=== PATIENT | male | born 1970 | race Caucasian/White ===

== ENCOUNTER → 2021-03-05 08:47 | Outpatient (CLI) | payer OTHER, SELFPAY ==
--- NOTE | 2021-03-05 | DI.MRI.S_ITS ---
PROCEDURE: MR LUMBAR SPINE WO CON INDICATIONS: Low back pain TECHNIQUE: Noncontrast sagittal T1 spin echo and T2 fast echo, sagittal STIR, axial T1 and T2 fast spin echo through the lumbar spine. In cases with scoliosis, additional coronal T2 fast spin echo may be performed. COMPARISON: None. FINDINGS: Image quality: Excellent. Alignment and Curvature: There is normal bony alignment. Bone Marrow: Marrow is of normal overall signal. No acute vertebral body compression fractures. Spinal Cord: Conus medullaris terminates at the L1 level. Visualized cord demonstrates normal signal and size. Paraspinous Soft Tissues: No paravertebral masses. T12-L1: Normal appearance. L1-L2: Normal appearance. L2-L3: Normal appearance. L3-L4: Normal appearance. L4-L5: Loss of disc signal. Minimal, diffuse disc bulge. Mild bilateral facet hypertrophy. Epidural lipomatosis. Mild narrowing of the central canal secondary to epidural lipomatosis. Mild right neural foraminal narrowing. No neural compression. L5-S1: Loss of disc signal. Mild, diffuse disc bulge. Severe epidural lipomatosis with severe narrowing of the central canal. Right foraminal disc protrusion. Severe right neural foraminal narrowing with compression of the exiting right L5 nerve root. Mild left neural foraminal narrowing. IMPRESSION: 1. L4-L5 and L5-S1 mild degenerative disease. 2. L4-L5 and L5-S1 mild facet arthropathy. 3. Severe L5-S1 central canal narrowing secondary to epidural lipomatosis. 4. Severe right L5-S1 neural foraminal narrowing secondary to disc protrusion with compression of the exiting right L5 nerve root. Dictated by: Marylu North MD, PhD on 03/05/2021 at 13:28 Approved by: Marylu North MD, PhD on 03/05/2021 at 13:32
== END ==
DX: M51.27 Other intervertebral disc displacement, lumbosacral region (principal); M51.36 Other intervertebral disc degeneration, lumbar region; M51.37 Other intervertebral disc degeneration, lumbosacral region; M47.816 Spondylosis without myelopathy or radiculopathy, lumbar region; M47.817 Spondylosis without myelopathy or radiculopathy, lumbosacral region; M48.07 Spinal stenosis, lumbosacral region; E88.2 Lipomatosis, not elsewhere classified
CPT/HCPCS: 72148

== ENCOUNTER 2024-07-05 08:36 | Day surgery (SDC) | payer OTHER, SELFPAY ==
--- NOTE | 2024-07-05 | PATH_ITS ---
[facility] Accession Number: [id number] No. of containers..05 Tissue . 01 Material submitted: . PART A: duodenum bulb - DUODENUM BULB PART B: stomach - ANTRUM PART C: stomach - GASTRIC BODY PART D: cecum - CECUM POLYP PART E: colon - SIGMOID POLYP . 01 Diagnosis: Part A: DUODENUM BULB: Duodenal mucosa with gastric heterotopia. No dysplasia or malignancy identified. No evidence of celiac disease. See comment. . Specimen Comments: The presence of gastric glands in the duodenal mucosa may present as a nodule on endoscopy. It may be metaplastic due to ongoing peptic injury or it may represent a congenital heterotopic process. . Part B: ANTRUM: Gastric mucosa with minimal chronic inflammation. No Helicobacter organisms identified. No intestinal metaplasia, dysplasia, or malignancy identified. . Part C: GASTRIC BODY: Gastric mucosa with minimal chronic inflammation. No Helicobacter organisms identified. No intestinal metaplasia, dysplasia, or malignancy identified. . Part D: CECUM POLYP : Tubular adenoma. . Part E: SIGMOID POLYP: Hyperplastic polyp. [facility] 07/10/2024 [facility]7 Local . 01 Comment: Parts B, C: An immunohistochemical stain was performed to evaluate for Helicobacter organisms and is negative. The control stains appropriately. * This test was developed and the performance characteristics were validated by [facility]. It has not been cleared or approved by the Food and Drug Administration. . 01 Electronically signed: . Tripp Galicia MD, Pathologist NPI- [id number] . 01 Gross description: . A. Received in formalin with two patient identifiers and duodenum bulb, are multiple mitchell soft tissue fragments aggregating to 0.8 x 0.5 x 0.1 cm. Filtered and submitted in cassette A1. . B. Received in formalin with two patient identifiers and antrum, are four mitchell soft tissue fragments 0.2 to 0.4 cm in greatest dimension. Submitted in cassette B1. . C. Received in formalin with two patient identifiers and gastric body, are two mitchell soft tissue fragments 0.3 to 0.4 cm in greatest dimension. Submitted in cassette C1. . D. Received in formalin with two patient identifiers and cecum polyp, is a single mitchell soft tissue fragment 0.6 cm in greatest dimension. Submitted in cassette D1. . E. Received in formalin with two patient identifiers and sigmoid polyp, is a single mitchell soft tissue fragment 0.4 cm in greatest dimension. Submitted in cassette E1. ([id number]) /JOSEFINA 07/10/2024 1557 Local . 01 Pathologist provided ICD-10: D12.0, K29.30, K31.89, K63.5 . 01 CPT . 755158, 578176, 768399, [id number], [id number], [id number] Specimen Comment: A courtesy copy of this report has been sent to [phone] Performed at: [address] [id number] MD Tripp Galicia MD Phone: [phone]
[2024-07-05 08:56] VITALS: BP 148/99; PULSE 106; RESP 18; TEMP 36.1; O2SAT 96
--- NOTE | 2024-07-05 09:10 | P.HP_ITS ---
History of Present Illness History of Present Illness Date Patient Seen: 07/05/24 Time Patient Seen: 09:11 Chief complaint: SDC Narrative: Artemio is a 53-year-old man with rectal bleeding and dyspepsia. Please see the office note from June for details. [facility] Medical History (Updated 07/05/24 @ 08:44 by Michelle Panchal RN) Hx of sleep apnea Plantar fasciitis History of tobacco use Hx of obesity Hx of radiculopathy Hx of erectile dysfunction Hx of primary hypertension Hx of gastroesophageal reflux (GERD) Surgical History (Updated 07/05/24 @ 08:21 by Michelle Panchal, DONNA) Hx of hernia repair Hx of cholecystectomy Social History Smoking Status: Current every day smoker alcohol intake: current Meds Home Medications and Allergies Home Medications Medication Instructions Recorded Confirmed Type acetaminophen 500 mg tablet 500 mg PO QID PRN Outbreak 06/05/24 07/05/24 History (Tylenol Extra Strength) cetirizine 10 mg tablet 10 mg PO DAILY 06/05/24 07/05/24 History lisinopril 20 mg tablet 20 mg PO DAILY 06/05/24 07/05/24 History omeprazole 20 mg capsule,delayed 20 mg PO BID 06/05/24 07/05/24 History release sildenafil 25 mg tablet (Viagra) 25 mg PO DAILY PRN Cold Sores 06/05/24 07/05/24 History hydroxyzine HCl 10 mg tablet 10 mg PO ONCE PM 07/05/24 07/05/24 History valacyclovir 500 mg tablet 500 mg PO BID 07/05/24 07/05/24 History Allergies Allergy/AdvReac Type Severity Reaction Status Date / Time No Known Drug Allergies Allergy Unverified 06/05/24 10:56 Exam Vital Signs (past 8 hours): - 07/05/24 08:56 Temperature 97.0 F L Pulse Rate 106 H Respiratory Rate 18 Blood Pressure 148/99 H Pulse Oximetry 96 Oxygen Delivery Method Room Air Oxygen Delivery Method Room Air Const General: No acute distress Assessment & Plan Assessment and plan (1) Dyspepsia: Status: Acute (2) Blood in stool: Status: Acute Plan EGD and colonoscopy Time-Based Coding :: [TOTAL MINUTES] spent with patient and on the chart (including review of chart, obtaining history, exam, reviewing outside data, placing orders, documenting exam and treatment plan, and counseling patient) on [DATE].
[2024-07-05 09:57] VITALS: BP 133/90; PULSE 92; RESP 16; TEMP 36.2; O2SAT 94
--- NOTE | 2024-07-05 09:58 | PM.OP.EC ---
Operative Date/Time/Diagnoses Date of procedure: 07/05/24 Time of procedure: 09:58 Pre-op diagnosis: Dyspepsia and rectal bleeding Post-op diagnosis: same Procedure & Clinicians Study performed: EGD and colonoscopy Same procedure as scheduled: Yes Surgeon: Bar Vallejo Procedure Notes Procedure in detail: Surgeon: Bar Vallejo MD Anesthesia: Eva Warren CRNA Procedure in detail: A timeout was performed. A bite blocked was placed and monitors were attached to the patient. The patient was positioned in the left lateral decubitus position. Sedation was administered. Once the patient was sedated the endoscope was inserted through the bite block and passed through the esophagus and stomach and into the duodenum. There were some hypertrophic mucosa in the duodenal bulb and biopsies were taken with cold forceps. We then withdrew the scope into the stomach. There was some mild antritis and biopsies were taken from the antrum with cold forceps. The rugal folds in the body of the stomach were slightly thickened and biopsies were taken with cold forceps. No other abnormalities were noted. The endoscope was retroflexed and a very small hiatal hernia was noted. The endoscope was straightned and withdrawn into the esophagus. No other abnormalities were seen in the esophagus. EGD findings: Mildly hypertrophic mucosa in the duodenal bulb, mild antritis, slightly thickened rugal folds in the gastric body and a very small hiatal hernia Next we repositioned the patient for a colonoscopy. A digital rectal exam was performed and was normal. The colonoscope was inserted and advanced to the cecum. The appendiceal orifice was identified and photographed. The scope was slowly withdrawn over greater than 6 minutes. There was a 7 mm polyp in the cecum removed with a cold snare. There was a 3 mm polyp in the sigmoid colon removed with a cold snare. The scope was retroflexed in the rectum and no other abnormalities were noted. Colonoscopy findings: 7 mm cecal polyp and 3 mm sigmoid polyp Total procedural EBL: 10 mL Scope withdrawal time: 16 minutes Sedation minutes: 28 minutes Post-procedure Disposition: PACU
[2024-07-05 10:02] VITALS: BP 119/88; PULSE 108; RESP 20; O2SAT 95
[2024-07-05 10:08] VITALS: BP 129/93; PULSE 81; RESP 95; TEMP 36.7; O2SAT 20
== END 2024-07-05 10:23 | disposition home or self-care (01) ==
PROVIDERS: Referring Provider Surgery; Visit Provider Surgery
PROC: 0DJD8ZZ Inspection of Lower Intestinal Tract, Via Natural or Artificial Opening Endoscopic (ICD-10-PCS; CPT 45378; principal; 2024-07-05 09:30)
PROC: 0DJ08ZZ Inspection of Upper Intestinal Tract, Via Natural or Artificial Opening Endoscopic (ICD-10-PCS; CPT 45385; 2024-07-05 09:30)
DX: K62.5 Hemorrhage of anus and rectum (principal); R10.13 Epigastric pain; K29.50 Unspecified chronic gastritis without bleeding; K44.9 Diaphragmatic hernia without obstruction or gangrene; D12.0 Benign neoplasm of cecum; K63.5 Polyp of colon
CPT/HCPCS: 45385; 43239; J2704

== ENCOUNTER → 2025-02-14 13:32 | Outpatient (CLI) | payer OTHER, SELFPAY ==
--- NOTE | 2025-02-14 13:34 | DI.CT.S_ITS ---
PROCEDURE: CT WRIST LEFT WITHOUT CON INDICATIONS: fracture of left radius TECHNIQUE: Noncontrast 1 mm axial sections acquired through the carpal bones, with coronal and sagittal reformats. For radiation dose reduction, the following was used: automated exposure control, adjustment of mA and/or kV according to patient size. COMPARISON: None. FINDINGS: Image quality: Excellent. Bones: Overlying cast material is present. Comminuted minimally displaced fracture of the distal radius. There is extension to the distal articular surface dorsally without significant step-off at the articular surface. Very mild dorsal tilting of the distal radial articular surface. Fracture line extends into the distal radioulnar joint without step-off. Additional small minimally displaced fracture is seen at the ulnar styloid tip. Carpal bones are otherwise normally aligned. Soft tissues: Mild soft tissue edema surrounding the wrist with a small radiocarpal effusion. The articular cartilages, ligaments, tendons are not well evaluated with CT. The visualized musculature is normal in bulk. IMPRESSION: 1. Comminuted minimally displaced intra-articular fracture of the distal radius as described above. No significant step-off is seen at the articular surfaces. 2. Tiny minimally displaced fracture of the tip of the ulnar styloid. Approved by: Tae Mack M.D. on 02/14/2025 at 16:57
== END ==
DX: S52.572A Other intraarticular fracture of lower end of left radius, initial encounter for closed fracture (principal); X58.XXXA Exposure to other specified factors, initial encounter
CPT/HCPCS: 73200